=== PATIENT | female | born 1990 ===

== ENCOUNTER 2018-05-15 11:31 | Emergency (ER) | payer MEDICAID ==
[2018-05-15 11:33] VITALS: BP 125/92
--- NOTE | 2018-05-15 11:38 | ER Report ---
History and Physical Time Seen By MD: 11:34 HPI/ROS CHIEF COMPLAINT: Here for a dose of methadone HISTORY OF PRESENT ILLNESS: Patient is a 19 HO female currently in police custody sent here from [place] for a dose of her methadone which reportedly she gets on a regular basis evidently she goes to the methadone clinic in [place] where she drives to from [place] every day to get a shot of methadone reportedly she is now in police custody and did not get her shot so they brought her here for dose of her methadone. Patient reportedly is with dry but is describing no symptoms of withdrawal patient is again in police custody and has no additional complaints noted at time of presentation have no verification that he she does take methadone have no verification of her dose methadone administration frequency or indication patient is G4 para 3 currently 14 weeks by dates REVIEW OF SYSTEMS: Respiratory: No cough, no dyspnea. Cardiovascular: No chest pain, no palpitations. Gastrointestinal: No vomiting, no abdominal pain. Musculoskeletal: No back pain. Remainder of the 14 system rev: Yes Allergies: Coded Allergies: No Known Drug Allergies (Unverified , 05/15/18) Reviewed Nurses Notes: Yes Old Medical Records Reviewed: Yes Constitutional Vital Sign - Last 24 Hours 05/15/18 11:33 Temp 99.1 Pulse 74 Resp 20 B/P (MAP) 125/92 Pulse Ox 98 O2 Delivery Room Air Physical Exam General Appearance: The patient is alert, has no immediate need for airway protection and no current signs of toxicity. No apparent distress Eyes: Pupils equal and round no injection. Respiratory: Chest is non tender, lungs are clear to auscultation. Cardiac: regular rate and rhythm [ ] Gastrointestinal: Abdomen is soft and non tender, no masses, bowel sounds normal. Musculoskeletal: Neck: Neck is supple and non tender. Extremities have full range of motion and are non tender. Skin: No rashes or lesions. [ ] DIFFERENTIAL DIAGNOSIS: After history and physical exam differential diagnosis was considered for drug-seeking behavior police clearance Medical Decision Making ED Course/Re-evaluation ED Course ED clinical course medical decision making 27-year-old female who comes emergency Department today for reportedly a methadone injection I spoke to the behavioral health and administer of her methadone clinic they said to not give her one she is inconsistent with her methadone treatment she sometimes notices 2 or 3 days at a time she is currently being transported to [place] with police in custody for outstanding warrants is a methadone clinic there that will evaluate her on arrival Jasmin Leonard R dot compliance manager witness a conversation I spoke directly to the methadone clinic and they advised again to not give her any I did give her a gram of Tylenol for headache or vitals were normal she is showing no signs or symptoms of withdrawal see no indication at this time to do anything more she is 14 weeks gravid as she is reportedly high risk and she having a vaginal bleeding discharge or any abdominal pain or cramping we'll discharge Decision to Disposition Date: May 15, 2018 Decision to Disposition Time: 11:52 Depart Departure Latest Vital Signs Vital Signs Date Time Temp Pulse Resp B/P (MAP) Pulse Ox O2 Delivery O2 Flow Rate FiO2 05/15/18 11:33 99.1 74 20 125/92 98 Room Air Impression: Primary Impression: Methadone dependence Condition: Condition Unchanged Disposition: HOME OR SELF-CARE Patient Instructions: Methadone (By injection) EMILY BOX MD May 15, 2018 11:38
[2018-05-15] MEDS ORDERED: ACETAMINOPHEN 500 MG TAB PO ONE (11:55)
== END 2018-05-15 12:02 | disposition home or self-care (01) ==
LOC: ER 11:39
DX: F11.20 Opioid dependence, uncomplicated (principal)
CPT/HCPCS: 99283